=== PATIENT | female | born 1970 | race Caucasian/White ===

== ENCOUNTER 2018-12-07 17:43 | Emergency (ER) | payer OTHER ==
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
[2018-12-07 18:14] VITALS: BP 148/91; PULSE 91; TEMP 98.4; BMI 25.5
[2018-12-07] MEDS ORDERED: NAPROXEN 500 MG TABLET (FP) PO ONE (18:27)
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
[2018-12-07] MEDS ORDERED: NAPROXEN 500 MG TABLET (FP) ONE (18:44)
== END 2018-12-07 18:51 | disposition home or self-care (01) ==
LOC: JERFT 17:43
DX: S13.4XXA Sprain of ligaments of cervical spine, initial encounter (principal); V49.49XA Driver injured in collision with other motor vehicles in traffic accident, initial encounter; Y92.414 Local residential or business street as the place of occurrence of the external cause; Y93.89 Activity, other specified; Y99.8 Other external cause status
CPT/HCPCS: 99281-25

== ENCOUNTER 2022-06-18 10:37 | Emergency (ER) | payer OTHER ==
[2022-06-18 11:00] VITALS: BP 127/77; PULSE 100; RESP 20; BMI 25.5
[2022-06-18 11:01] VITALS: TEMP 100
[2022-06-18] MEDS ORDERED: IBUPROFEN 600 MG TABLET (FP) PO ONE ×2 (11:20→13:02)
[2022-06-18] MEDS ORDERED: AZITHROMYCIN 500 MG TABLET PO ONE (11:25)
[2022-06-18] MEDS ORDERED: DEXAMETHASONE 4 MG TABLET (FP) PO ONE (11:25)
[2022-06-18] MEDS ORDERED: DEXAMETHASONE SOD PHOSPHATE 10 MG/1 ML VIAL ONE (13:02)
[2022-06-18] MEDS ORDERED: AZITHROMYCIN 250 MG TABLET ONE (13:02)
== END 2022-06-18 13:30 | disposition home or self-care (01) ==
LOC: JER 10:37
DX: J06.9 Acute upper respiratory infection, unspecified (principal)
CPT/HCPCS: 0241U-QW; 99283-25